=== PATIENT | male | born 1940 | race Caucasian/White ===

== ENCOUNTER 2018-08-12 00:35 | Emergency (ER) | payer MEDICARE ==
--- NOTE | 2018-08-12 01:19 | ED Physician Documentation ---
PD HPI DYSPNEA - Stated complaint Stated Complaint: SOA - Chief complaint Chief Complaint: Resp - History obtained from History obtained from: Patient, EMS - History of Present Illness Timing - onset: How many hours ago (about 1 1/2 hours ago.) Timing - duration: Hours (1 1/2) Timing - details: Gradual onset (The patient states she is feeling well through the day. He had dinner which included scallops around 9:00. About 10-1030 he noted an onset of feeling of dyspnea and some throat discomfort and tingling in his arms. He had worsening trouble breathing over the next hour and so called EMS. EMS arrived and found him in significant respiratory effort in tripod position with wheezing. Dated given nebulizer treatment and he improved considerably and was feeling better on route. There is no noted rash. There is no noted angioedema.) Inciting event(s): Allergic rxn/anaphylaxis (he thinks it might be reaction to the scallops he ate, but no history of food allergies.). No: URI, Exposure (ie smoke) Improved by: Inhaler/neb (he is feeling completely well on arrival to the ER.) Associated symptoms: Wheezing. No: Fever, Cough, Chest pain / discomfort, Palpitations, Bilateral edema Similar symptoms before: Has not had sx before Recently seen: Not recently seen Review of Systems Constitutional: denies: Fever, Myalgias Nose: denies: Rhinorrhea / runny nose, Congestion Throat: denies: Sore throat Cardiac: denies: Chest pain / pressure, Palpitations Respiratory: reports: Dyspnea. denies: Cough, Wheezing GI: reports: Nausea. denies: Abdominal Pain, Vomiting, Diarrhea Neurologic: reports: Generalized weakness. denies: Focal weakness, Numbness, Near syncope, Altered mental status, Headache PD PAST MEDICAL HISTORY - Past Medical History Cardiovascular: None Respiratory: None Neuro: None Endocrine/Autoimmune: None - Allergies Allergies/Adverse Reactions: Allergies Allergy/AdvReac Type Severity Reaction Status Date / Time No Known Drug Allergies Allergy Verified 08/12/18 00:46 PD ED PE NORMAL - Vitals Vital signs reviewed: Yes - General General: Alert and oriented X 3, No acute distress, Well developed/nourished - HEENT HEENT: Moist mucous membranes, Pharynx benign (minimal edema of the uvula. Else normal. ) - Neck Neck: Supple, no meningeal sign, No adenopathy - Cardiac Cardiac: RRR, No murmur - Respiratory Respiratory: Clear bilaterally - Abdomen Abdomen: Normal bowel sounds, Soft - Back Back: No CVA TTP - Derm Derm: Normal color, Warm and dry - Extremities Extremities: No tenderness to palpate, Normal ROM s pain, No edema, No calf tenderness / cord - Neuro Neuro: Alert and oriented X 3, No motor deficit, Normal speech Results - Vitals Vitals: Vital Signs - 24 hr 08/12/18 08/12/18 00:43 01:45 Temperature 36.2 C L Heart Rate 77 74 Respiratory 18 16 Rate Blood Pressure 129/83 H 123/78 O2 Saturation 94 99 Oxygen O2 Source Room air PD MEDICAL DECISION MAKING - ED course Complexity details: considered differential, d/w patient Departure - Departure Disposition: 01 Home, Self Care Clinical Impression: Food allergy Dyspnea Qualifiers: Dyspnea type: shortness of breath Qualified Code(s): R06.02 - Shortness of breath Condition: Stable Record reviewed to determine appropriate education?: Yes Instructions: ED Allergic React Food Follow-Up: RODRÍGUEZ TUBBS MD [Primary Care Provider] - Comments: This does sound likely to have been an allergic reaction to the scallops. Could have been another food as well. He seemed to be doing well now and it seems to have reversed and improved. Stay well-hydrated. Recheck her follow-up with your primary care if any recurrent episodes. Avoid scallops at this time. You could consider getting allergy tested by your primary care to verify. Discharge Date/Time: 08/12/18 01:54
[2018-08-12] MEDS ORDERED: diphenhydrAMINE 25 MG CAPSULE PO STA (01:34)
[2018-08-12] MEDS ORDERED: DEXAMETHASONE 10 MG/ML VIAL PO STA (01:34)
[2018-08-12] MEDS ORDERED: CHERRY SYRUP 10 ML UDC PO ONE (01:34)
[2018-08-12 01:47] VITALS: BP 123/78
== END 2018-08-12 01:54 | disposition home or self-care (01) ==
LOC: EDUNIT# → ED 00:35
DX: T78.1XXA Other adverse food reactions, not elsewhere classified, initial encounter (principal); R06.02 Shortness of breath; X58.XXXA Exposure to other specified factors, initial encounter
CPT/HCPCS: 99283; A9270

== ENCOUNTER 2018-08-12 00:55 | Outpatient (CLI) | payer MEDICARE | END 2018-08-12 00:56 | disposition critical access hospital (66) | LOC: EMS 00:55 | PROVIDERS: ATTEND Surgery | DX: R06.00 Dyspnea, unspecified (principal); R53.81 Other malaise | CPT/HCPCS: A0425; A0427 ==

== ENCOUNTER 2020-04-02 17:16 | Outpatient (CLI) | payer MEDICARE | END 2020-04-02 17:17 | disposition home or self-care (01) | LOC: COV 17:16 | PROVIDERS: ATTEND Family Medicine | DX: R05 Cough (principal); R06.02 Shortness of breath; M79.10 Myalgia, unspecified site; R53.83 Other fatigue; R43.8 Other disturbances of smell and taste; R09.81 Nasal congestion; Z20.828 Contact with and (suspected) exposure to other viral communicable diseases ==

== ENCOUNTER 2021-01-07 08:00 | Outpatient (CLI) | payer MEDICARE ==
[2021-01-07 22:39] LABS: CHLAMYDIA TRACHOMATIS DNA NEGATIVE (NEGATIVE); NEISSERIA GONORRHOEAE DNA NEGATIVE (NEGATIVE)
[2021-01-09 12:31] LABS: HEPATITIS C ANTIBODY NON-REACTIVE (NON-REACTIVE)
[2021-01-09 12:36] LABS: HEPATITIS B SURFACE ANTIGEN NON-REACTIVE (NON-REACTIVE)
[2021-01-09 15:57] LABS: HIV AG/AB 4TH GEN NON-REACTIVE (NON-REACTIVE)
[2021-01-10 10:11] LABS: HSV 1 IGG TYPE SPECIFIC AB 42.8 index; HSV 2 IGG TYPE SPECIFIC AB 7.08 index
== END 2021-01-07 23:59 | disposition home or self-care (01) ==
LOC: LAB.S 08:00
PROVIDERS: ATTEND Emergency Medicine
DX: Z20.2 Contact with and (suspected) exposure to infections with a predominantly sexual mode of transmission (principal)
CPT/HCPCS: 86317; 86592; 86695; 86696; 86803; 87340; 87491; 87591; G0475; 87389; 87661

== ENCOUNTER 2021-04-07 08:00 | Outpatient (CLI) | payer MEDICARE ==
--- NOTE | 2021-04-07 18:09 | XRAY Report ---
PROCEDURE: Chest 2 View X-Ray INDICATIONS: FOCAL PNEUMONIA TECHNIQUE: 2 view(s) of the chest. COMPARISON: None. FINDINGS: Surgical changes and devices: None. Lungs and pleura: No pleural effusions or pneumothorax. Mild bibasilar atelectasis is seen. No defin ite focal infiltrate. Mediastinum: Mediastinal contours are normal. Heart size is normal. Bones and chest wall: No suspicious bony abnormalities. Soft tissues appear unremarkable. IMPRESSION: Mild bibasilar atelectasis. No definite focal infiltrate. No pleural effusion or pneumot horax. Reviewed by: Aiden Bello MD on 04/07/2021 6:07 PM PST Approved by: Aiden Bello MD on 04/07/2021 6:07 PM PST Station ID: [id number]
== END 2021-04-07 23:59 | disposition home or self-care (01) ==
LOC: DI.S 08:00
PROVIDERS: ATTEND Emergency Medicine
DX: J18.8 Other pneumonia, unspecified organism (principal); J98.11 Atelectasis; R05.1 Acute cough; Z20.822 Contact with and (suspected) exposure to COVID-19
CPT/HCPCS: 71046; U0004

== ENCOUNTER 2023-10-17 19:48 | Emergency (ER) | payer MEDICARE ==
[2023-10-17 20:06] VITALS: O2SAT 95
--- NOTE | 2023-10-17 20:35 | ED Physician Documentation ---
PD HPI DYSPNEA - Stated complaint Stated Complaint: HIGH BP - Chief complaint Chief Complaint: Cardiac - History obtained from History obtained from: Patient, Family - Additional information Additional information: The patient comes to the emergency department chief complaint of dyspnea and fatigue/generalized weakness over the last few days. He states that he has a history of congestive heart failure and paroxysmal A-fib and has had cycles of fluid retention and dyspnea previously. He also has sleep apnea and wears a CPAP machine at night for this. The patient states that he was a smoker until age 32 at which time he quit. However, he was also exposed to secondhand smoke from both parents from infancy. The patient states that he normally does not drink very much alcohol but that yesterday for Father's Day, he had a couple shots of tequila, plus wine and champagne. His son does not know exactly how much he drank but says that his father was already at least somewhat intoxicated when the son arrived to the celebration and that he did continue to have some drinks afterward. The patient states that he could not sleep last night and every time he laid down, he felt as though he was drowning. He states that he could not tell if his heart was racing or not. The patient states he tried taking his zolpidem and finally was able to lay down comfortably at 5:00 this morning. He had a hard time getting up because he was so tired and now just feels fatigued. He still has some short of breath, that he is doing better than he was. No chest pain. No nausea or vomiting. He has some mild edema in his legs but this has cycled up and down over time. The patient states that he went to the walk-in clinic and they did an EKG but nothing else. He states he is also gone to the emergency department several times in [place] since April for episodes of shortness of breath. The patient has not been given a diagnosis of either COPD or coronary artery disease that he knows of. No recent medication changes. He did note that his blood pressure was elevated today and took extra amlodipine for this. The patient states that normally his systolic blood pressure is around 130. The patient denies any other complaints at this time. PD PAST MEDICAL HISTORY - Past Medical History Cardiovascular: None Respiratory: None Neuro: None Endocrine/Autoimmune: None GI: None : None HEENT: None Psych: None Musculoskeletal: None Derm: None - Past Surgical History Past Surgical History: Yes General: Other - Present Medications Home Medications: Ambulatory Orders Medication Instructions Recorded Confirmed Losartan Potassium 1 tab PO BID 10/17/23 10/17/23 Metoprolol Succinate [Toprol Xl] 1 tab PO DAILY 10/17/23 10/17/23 - Allergies Allergies/Adverse Reactions: Allergies Allergy/AdvReac Type Severity Reaction Status Date / Time No Known Drug Allergies Allergy Verified 10/17/23 20:05 - Social History Does the pt smoke?: No Smoking Status: Never smoker Does the pt drink ETOH?: Yes Does the pt have substance abuse?: No - Immunizations Immunizations are current?: Yes - POLST Patient has POLST: No PD ED PE NORMAL - Vitals Vital signs reviewed: Yes - General General: Alert and oriented X 3, No acute distress, Well developed/nourished - HEENT HEENT: Atraumatic, EOMI, Moist mucous membranes - Neck Neck: Supple, no meningeal sign - Cardiac Cardiac: RRR, No murmur, Strong equal pulses - Respiratory Respiratory: No respiratory distress, Clear bilaterally - Abdomen Abdomen: Soft, Non tender, Non distended - Derm Derm: Normal color, Warm and dry, No rash - Extremities Extremities: No deformity, Other (1+ pitting edema bilaterally) - Neuro Neuro: Other (Grossly intact) - Psych Psych: Normal mood, Normal affect Results - Vitals Vitals: Vital Signs - 24 hr 10/17/23 10/17/23 10/17/23 20:02 21:00 21:32 Temperature 36.4 C L Heart Rate 72 66 Respiratory 18 14 Rate Blood Pressure 186/96 H 197/93 H 197/97 H O2 Saturation 95 95 10/17/23 22:40 Temperature Heart Rate Respiratory Rate Blood Pressure 158/95 H O2 Saturation Oxygen O2 Source Room air - Labs Labs: Laboratory Tests 10/17/23 10/17/23 10/17/23 20:34 20:42 20:42 WBC 4.1 L RBC 4.32 L Hgb 13.8 L Hct 41.3 L MCV 95.6 H MCH 31.9 H MCHC 33.4 RDW 12.5 Plt Count 113 L MPV 9.5 Neut # (Auto) 2.3 Lymph # (Auto) 0.9 L [place] # (Auto) 0.7 Eos # (Auto) 0.1 Baso # (Auto) 0.0 Absolute Nucleated RBC 0.00 Nucleated RBC % 0.0 Sodium 136 Potassium 4.2 Chloride 101 Carbon Dioxide 31 Anion Gap 4.0 L BUN 13 Creatinine 0.8 Estimated GFR (MDRD) 93 Glucose 93 Calcium 9.2 Total Bilirubin 0.8 AST 17 ALT 14 Alkaline Phosphatase 69 Troponin I High Sens 5.4 B-Natriuretic Peptide Total Protein 6.1 L Albumin 3.9 Globulin 2.2 Albumin/Globulin Ratio 1.8 Lipase 21 Nasal Adenovirus (PCR) NOT DETECTED Nasal B. parapertussis DNA (PCR) NOT DETECTED Nasal Coronavir 229E PCR NOT DETECTED Nasal Coronavir HKU1 PCR NOT DETECTED Nasal Coronavir NL63 PCR NOT DETECTED Nasal Coronavir OC43 PCR NOT DETECTED Nasal Enterovir/Rhinovir PCR NOT DETECTED Nasal Influenza B PCR NOT DETECTED Nasal Influenza A PCR NOT DETECTED Nasal Parainfluen 1 PCR NOT DETECTED Nasal Parainfluen 2 PCR NOT DETECTED Nasal Parainfluen 3 PCR NOT DETECTED Nasal Parainfluen 4 PCR NOT DETECTED Nasal RSV (PCR) NOT DETECTED Nasal B.pertussis DNA PCR NOT DETECTED Nasal C.pneumoniae (PCR) NOT DETECTED Barry Human Metapneumo PCR DETECTED A Nasal M.pneumoniae (PCR) NOT DETECTED Nasal SARS-CoV-2 (PCR) NOT DETECTED 10/17/23 20:42 WBC RBC Hgb Hct MCV MCH MCHC RDW Plt Count MPV Neut # (Auto) Lymph # (Auto) [place] # (Auto) Eos # (Auto) Baso # (Auto) Absolute Nucleated RBC Nucleated RBC % Sodium Potassium Chloride Carbon Dioxide Anion Gap BUN Creatinine Estimated GFR (MDRD) Glucose Calcium Total Bilirubin AST ALT Alkaline Phosphatase Troponin I High Sens B-Natriuretic Peptide 128 H Total Protein Albumin Globulin Albumin/Globulin Ratio Lipase Nasal Adenovirus (PCR) Nasal B. parapertussis DNA (PCR) Nasal Coronavir 229E PCR Nasal Coronavir HKU1 PCR Nasal Coronavir NL63 PCR Nasal Coronavir OC43 PCR Nasal Enterovir/Rhinovir PCR Nasal Influenza B PCR Nasal Influenza A PCR Nasal Parainfluen 1 PCR Nasal Parainfluen 2 PCR Nasal Parainfluen 3 PCR Nasal Parainfluen 4 PCR Nasal RSV (PCR) Nasal B.pertussis DNA PCR Nasal C.pneumoniae (PCR) Barry Human Metapneumo PCR Nasal M.pneumoniae (PCR) Nasal SARS-CoV-2 (PCR) PD Medical Decision Making - ED course Complexity details: reviewed results, re-evaluated patient, considered differential, d/w patient, d/w family ED course: The patient was worked up with EKG which showed normal sinus rhythm, as well as chest x-ray and labs including BNP and troponin. The EKG showed normal sinus rhythm and BNP was only mildly elevated in the low 100s. Troponin was unremarkable. The patient's chest x-ray showed possible early CHF without focal consolidation. The patient's respiratory PCR panel was positive for human metapneumovirus. I discussed with the patient and his son that this, along with some dehydration and the drinking he did yesterday, it is most likely the reason the patient is not feeling up to his usual energy level today. I discussed with him that at his age, that level of drinking is hard on his heart, especially considering his underlying conditions, and he should rethink his use of alcohol. The patient is stable for discharge home. His oxygen saturation has been in the upper 90s to 100 on room air, he is afebrile, and he is breathing comfortably. We have discussed the usual indications for return. Departure - Departure Disposition: 01 Home, Self Care Clinical Impression: Weakness Dyspnea Qualifiers: Dyspnea type: unspecified Qualified Code(s): R06.00 - Dyspnea, unspecified Condition: Stable Instructions: ED Dyspnea Shortness of Breath Comments: Overall your laboratory studies look fairly good, as does your EKG. Your chest x-ray has not been officially read by the radiologist yet which is why you have been kept in the emergency department, to be sure that they do not find anything that needs further treatment. On first pass, your x-ray looks reasonably good and it does not appear that you are in an acute flareup of your congestive heart failure. Furthermore, your lungs were clear on exam and your oxygen levels are good here. You are also positive for human metapneumovirus, which causes a flulike illness when it is full-fledged. You may not have a very severe case of it however, which is why you have just felt a bit off for the last several days. This is probably contributing to your sense of fatigue, as well is the drinking you did yesterday. Ultimately, you will have to be the cotton washer of how much alcohol you can take at your age, but with your history of heart problems, it is important to consider that sometimes alcohol can trigger atrial fibrillation and congestive heart failure exacerbations and it is probably best if you keep your drinking to a minimum. You have requested to go home prior to your chest x-ray being Officially read by the radiologist,. If anything of concern is brought up, you will be notified at home. You should make an appointment to follow-up with your primary doctor. As far as your blood pressure, his come down quite a bit in the emergency department. While it is still not entirely normal, your blood pressure has not at any point been dangerously high and is only moderately elevated at this point. Some of this may again be from some of the physical stress and rebound from the drinking yesterday. Please try to get good rest tonight. If you find that your blood pressure is running high day after day, you will need to talk to your doctor about possibly having your medications adjusted to get better control. Otherwise, if you develop severe chest pain or shortness of breath, please do not hesitate to return to the emergency department. Forms: PCP List Discharge Date/Time: 10/17/23 23:08
[2023-10-17 20:48] LABS: BASOPHILS % (AUTO) 0.7 %; EOSINOPHILS # (AUTO) 0.1 10^3/uL (0.0-0.7); EOSINOPHILS % (AUTO) 3.2 %; HCT - HEMATOCRIT 41.3 % (42.0-52.0); HGB - HEMOGLOBIN 13.8 g/dL (14.0-18.0); LYMPHOCYTES # (AUTO) 0.9 10^3/uL (1.5-3.5); LYMPHOCYTES % (AUTO) 22.5 %; MEAN CORPUSCULAR HEMOGLOBIN 31.9 pg (27.0-31.0); MEAN CORPUSCULAR HGB CONC 33.4 g/dL (32.0-36.0); MEAN CORPUSCULAR VOLUME 95.6 fL (80.0-94.0); MEAN PLATELET VOLUME 9.5 fL (7.4-11.4); MONOCYTES # (AUTO) 0.7 10^3/uL (0.0-1.0); MONOCYTES % (AUTO) 16.6 %; NEUTROPHILS # (AUTO) 2.3 10^3/uL (1.5-6.6); NEUTROPHILS % (AUTO) 56.8 %; PLT - PLATELET COUNT 113 10^3/uL (130-450); RED BLOOD COUNT 4.32 10^6/uL (4.70-6.10); RED CELL DISTRIBUTION WIDTH 12.5 % (12.0-15.0); WHITE BLOOD COUNT 4.1 x10^3/uL (4.8-10.8)
[2023-10-17 21:03] LABS: ALBUMIN 3.9 g/dL (3.2-5.5); ALBUMIN/GLOBULIN RATIO 1.8 (1.0-2.2); BILIRUBIN,TOTAL 0.8 mg/dL (0.2-1.0); CALCIUM 9.2 mg/dL (8.5-10.3); CREATININE 0.8 mg/dL (0.6-1.3); POTASSIUM 4.2 mmol/L (3.5-4.5); TOTAL PROTEIN 6.1 g/dL (6.4-8.9)
[2023-10-17 21:09] LABS: TROPONIN I HIGH SENSITIVITY 5.4 ng/L (2.3-19.7)
[2023-10-17 21:37] LABS: B. PARAPERTUSSIS- RESP PCR PAN NOT DETECTED; B. PERTUSSIS- RESP PCR PANEL NOT DETECTED; C. PNEUMONIAE- RESP PCR PANEL NOT DETECTED; CORONAVIRUS 229E-RESP PCR NOT DETECTED; CORONAVIRUS HKU1-RESP PCR NOT DETECTED; CORONAVIRUS NL63-RESP PCR NOT DETECTED; CORONAVIRUS OC43-RESP PCR NOT DETECTED; HUMAN METAPNEUMOVIRUS DETECTED; INFLUENZA A- RESP PCR PANEL NOT DETECTED; INFLUENZA B - RESP PCR PANEL NOT DETECTED; M. PNEUMONIAE- RESP PCR PANEL NOT DETECTED; PARAINFLUENZA VIRUS 1 NOT DETECTED; PARAINFLUENZA VIRUS 2 NOT DETECTED; PARAINFLUENZA VIRUS 3 NOT DETECTED; PARAINFLUENZA VIRUS 4 NOT DETECTED; RHINOVIRUS/ENTEROVIRUS NOT DETECTED; RSV- RESP PCR PANEL NOT DETECTED; SARS-CoV-2 -RESP PCR PANEL NOT DETECTED
[2023-10-17] MEDS: METOPROLOL TARTRATE 50 MG TABLET PO STA (21:44)
[2023-10-17 22:45] VITALS: BP 158/95
--- NOTE | 2023-10-17 22:57 | XRAY Report ---
PROCEDURE: Chest 1V INDICATIONS: dyspnea TECHNIQUE: One view of the chest was acquired. COMPARISON: 04/07/2021 FINDINGS: Surgical changes and devices: None. Lungs and pleura: Diffuse interstitial prominence. Mild perihilar airway thickening. Streaky bibasil ar opacities. No pneumothorax or substantial pleural effusion. Mediastinum: Mediastinal contours appear normal. Heart size is stable. Bones and chest wall: No suspicious bony lesions. Overlying soft tissues appear unremarkable. IMPRESSION: Diffuse interstitial prominence and perihilar airway thickening may represent bronchitis either infec tious or inflammatory etiology. No dense consolidation. Early CHF may have a similar appearance if cl inically appropriate. Reviewed by: Naun Bojorquez MD on 10/17/2023 10:56 PM PDT Approved by: Naun Bojorquez MD on 10/17/2023 10:56 PM PDT Station ID: [id number]
[2023-10-17] MEDS: LORazepam 1 MG TABLET PO STA (23:05)
== END 2023-10-17 23:08 | disposition home or self-care (01) ==
LOC: ED 19:48
DX: R06.00 Dyspnea, unspecified (principal); R53.83 Other fatigue; R53.1 Weakness; B97.81 Human metapneumovirus as the cause of diseases classified elsewhere; I50.9 Heart failure, unspecified; Z87.891 Personal history of nicotine dependence
CPT/HCPCS: 36415; 71045; 80053; 83690; 83880; 84484; 85025; 87633; 93005; 99283; 99284; A9270